=== PATIENT | male | born 1955 | race Caucasian/White ===

== ENCOUNTER 2018-02-03 18:30 | Emergency (ER) | payer BC ==
[2018-02-03] MEDS ORDERED: NA CHLORIDE 0.9% 500 ML ONE (18:47)
--- NOTE | 2018-02-03 19:08 | RAD REPORT ---
EXAM DESCRIPTION: RAD - Chest Single View - 02/03/2018 6:57 pm CLINICAL HISTORY: Cough, chest pain COMPARISON: None. FINDINGS: Portable technique limits examination quality. The lungs are grossly clear. The heart is normal in size. No displaced fractures. IMPRESSION: No acute intrathoracic process suspected.
--- NOTE | 2018-02-03 19:09 | RAD REPORT ---
EXAM DESCRIPTION: RAD - Shoulder Right 2 View - 02/03/2018 6:55 pm CLINICAL HISTORY: Fall, right shoulder pain COMPARISON: None. FINDINGS: No acute fracture or dislocation seen. AC joint degenerative changes.
[2018-02-03] MEDS ORDERED: MORPHINE 4 MG/ML SYR ONE (19:37)
[2018-02-03] MEDS ORDERED: ONDANSETRON 4 MG/2 ML VIAL ONE (19:37)
--- NOTE | 2018-02-03 19:37 | RAD REPORT ---
EXAM DESCRIPTION: CT - CTHCSPWOC - 02/03/2018 7:15 pm CLINICAL HISTORY: Trauma, head and neck injury. COMPARISON: None. TECHNIQUE: Axial 5 mm thick images of the head were obtained. Axial 2 mm thick images of the cervical spine were obtained with sagittal and coronal reconstruction images generated and reviewed. All CT scans are performed using dose optimization technique as appropriate and may include automated exposure control or mA/KV adjustment according to patient size. FINDINGS: CT HEAD WITHOUT CONTRAST: No acute hemorrhage, hydrocephalus or extra-axial collection is identified.No areas of brain edema or midline shift. The paranasal sinuses and mastoids are clear.The calvarium is intact. CT CERVICAL SPINE WITHOUT CONTRAST: Fracture of the right C7 lateral mass and transverse process noted.Displacement is minimal.No subluxa tion or additional fracture identified. IMPRESSION: No acute intracranial findings. Acute fracture of the right C7 lateral mass and transverse process noted with minimal displacement. N o subluxation. Findings were discussed with Dr. Gipson in the emergency room 7:30 p.m. 02/03/2018 by telephone.
[2018-02-03 19:49] LABS: Protime INR 0.89
[2018-02-03 19:52] LABS: Potassium 4.2 mEq/L (3.6-5.0)
[2018-02-03 19:56] LABS: Absolute Lymphocytes (CBC) 2.4 K/uL (0.7-4.9); Absolute Monocytes 0.9 K/uL (0.1-1.3); Absolute Neutrophil 9.7 K/uL (1.8-8.0); Basophils % 0.4 % (0-1.3); Eosinophils % 1.3 % (0-4.4); Hematocrit 50.8 % (39.6-49.0); MCH 32.5 pg (27.0-35.0); MCV 97.1 fL (80-100); MPV 8.6 fL (7.6-11.3); RBC Red Blood Cell Count 5.23 M/uL (4.33-5.43)
[2018-02-03 19:58] LABS: Albumin 4.3 g/dL (3.2-5.5); Bilirubin Direct 0.1 mg/dL (0-0.2); Bilirubin Total 0.4 mg/dL (0.3-1.2); Magnesium 2.3 mg/dL (1.8-2.5); Protein, Total 7.9 g/dL (6.0-8.3)
[2018-02-03] MEDS ORDERED: LABETALOL 20 MG/4ML SYRINGE IV ONE (19:59)
[2018-02-03 20:02] LABS: CKMB Creatine Kinase MB 2.3 ng/ml (0.3-4.0)
--- NOTE | 2018-02-03 20:19 | EDPHYS ---
Physician Documentation [facility] Name: Gaurav Ceballos Jr Age: 62 yrs Sex: Male : 1955 Arrival Date: 02/03/2018 Time: 18:33 Bed 6 Private MD: ED Physician Ted Balbuena HPI: 02/03 18:42 This 62 yrs old Male presents to ER via EMS with complaints of Fall Injury. cp 18:42 The patient has experienced syncope, lost consciousness. cp 18:42 Onset: The symptoms/episode began/occurred just prior to arrival. Duration: This was a cp single episode, that lasted 1 minute(s). Associated injury: Neck: pain, Back: thoracic area, pain, Right upper extremity: posterior aspect of right shoulder, decreased range of motion, pain, tenderness. Current symptoms: pain of right shoulder, upper back and neck area. Historical: - Allergies: 18:43 No Known Allergies; hb - Home Meds: 18:43 B/P Pill [Active]; COPD Inhaler [Active]; cholesterol pill [Active]; Flomax 0.4 mg Oral hb cp24 1 cap once daily [Active]; - PMHx: 18:43 COPD; High Cholesterol; Hypertension; Kidney stones; hb - PSHx: 18:43 Appendectomy; hb - Immunization history: Last tetanus immunization: < 10 years ago. - Social history:: Smoking status: Patient/guardian denies using tobacco. ROS: 18:45 Constitutional: Negative for body aches, chills, fever, poor PO intake. cp 18:45 Eyes: Negative for injury, pain, redness, and discharge. cp 18:45 ENT: Negative for drainage from ear(s), ear pain, sore throat, difficulty swallowing, difficulty handling secretions. 18:45 Cardiovascular: Negative for chest pain, edema, palpitations. 18:45 Respiratory: Positive for cough, "sounds productive", Negative for wheezing. 18:45 Abdomen/GI: Negative for abdominal pain, vomiting, diarrhea, constipation, black/tarry stool, rectal bleeding. 18:45 Back: Positive for pain at rest, pain with movement, of the right trapezius, right scapular area and thoracic area. 18:45 MS/extremity: Positive for decreased range of motion, pain, tenderness, of the left shoulder, Negative for deformity. 18:45 Skin: Positive for laceration(s), of the right forearm. 18:45 Neuro: Positive for syncope, Negative for altered mental status, numbness, weakness. 18:45 All other systems are negative. Exam: 18:52 Constitutional: The patient appears in no acute distress, alert, awake, cp non-diaphoretic, non-toxic, well developed, well nourished, uncomfortable. 18:52 Head/Face: Normocephalic, atraumatic. cp 18:52 Eyes: Periorbital structures: appear normal, Pupils: equal, round, and reactive to light and accomodation, Extraocular movements: intact throughout, Conjunctiva: normal, no exudate, no injection, Sclera: no appreciated abnormality, Lids and lashes: appear normal, bilaterally. 18:52 ENT: External ear(s): are unremarkable, Ear canal(s): are normal, clear, TM's: bulging, is not appreciated, bilaterally, dullness, bilaterally, erythema, is not appreciated, bilaterally, Nose: is normal, Mouth: Lips: moist, Oral mucosa: moist, Posterior pharynx: Airway: no evidence of obstruction, patent, Uvula: midline, swelling, is not appreciated, erythema, is not appreciated, exudate, is not appreciated, Voice: is normal. 18:52 Neck: C-spine: C-collar placed in ED, vertebral tenderness, that is mild, appreciated at C6 and C7, crepitus, is not appreciated, ROM/movement: pain, with any movement, nuchal rigidity, is not appreciated. 18:52 Chest/axilla: Inspection: normal, Palpation: is normal, no crepitus, no tenderness. 18:52 Cardiovascular: Rate: normal, Rhythm: regular, Pulses: Pulses are 2+ in right radial artery and left radial artery. Edema: is not appreciated, JVD: is not appreciated. 18:52 Respiratory: the patient does not display signs of respiratory distress, Respirations: normal, no use of accessory muscles, no retractions, no splinting, no tachypnea, labored breathing, is not present, Breath sounds: bronchial sounds, that are mild, are heard diffusely, decreased breath sounds, are not appreciated, stridor, is not appreciated, wheezing: is not appreciated. 18:52 Abdomen/GI: Inspection: abdomen appears normal, Bowel sounds: active, all quadrants, Palpation: abdomen is soft and non-tender, in all quadrants, rebound tenderness, is not appreciated, voluntary guarding, is not appreciated, involuntary guarding, is not appreciated. 18:52 Back: pain, that is moderate, of the right trapezius, right scapular area and right subscapular area, ROM is painful. 18:52 Musculoskeletal/extremity: Extremities: grossly normal except: noted in the left shoulder: decreased ROM, pain, tenderness, There is no evidence of deformity. 18:52 Skin: injury, abrasion(s), small abrasion noted, of the right forearm. 18:52 Neuro: Orientation: to person, place \\T\\ time. Mentation: is normal, Cerebellar function: Romberg testing is negative, normal finger to nose testing, Motor: moves all fours, strength is normal, Sensation: no obvious gross deficits. 19:33 ECG was reviewed by the Attending Physician. cp Vital Signs: 18:34 BP 177 / 111; Pulse 92; Resp 18; Temp 98; Pulse Ox 100% on R/A; Pain 10/10; hb 19:23 BP 187 / 110; Pulse 93; Resp 17; Pulse Ox 95% on R/A; tl2 20:29 BP 186 / 112; Pulse 91; Resp 21; Pulse Ox 96% on R/A; tl2 20:48 BP 171 / 106; Pulse 91; Resp 17; Pulse Ox 95% on R/A; tl2 21:24 BP 149 / 85; Pulse 87; Resp 17; Pulse Ox 98% on R/A; tl2 [place] Coma Score: 18:34 Eye Response: spontaneous(4). Verbal Response: oriented(5). Motor Response: obeys hb commands(6). Total: 15. 19:23 Eye Response: spontaneous(4). Verbal Response: oriented(5). Motor Response: obeys tl2 commands(6). Total: 15. Trauma Score (Adult): 18:34 Eye Response: spontaneous(1); Verbal Response: oriented(1); Motor Response: obeys hb commands(2); Systolic BP: > 89 mm Hg(4); Respiratory Rate: 10 to 29 per min(4); Kuldeep Score: 15; Trauma Score: 12 19:23 Eye Response: spontaneous(1); Verbal Response: oriented(1); Motor Response: obeys tl2 commands(2); Systolic BP: > 89 mm Hg(4); Respiratory Rate: 10 to 29 per min(4); Kuldeep Score: 15; Trauma Score: 12 MDM: 18:38 Patient medically screened. abbey 19:00 Differential Diagnosis: cardiac arrhythmia, GI bleed, idiopathic syncope, seizure, cp transient ischemic attack, vasovagal episode. 20:12 Data reviewed: vital signs, nurses notes, lab test result(s), radiologic studies, CT cp scan, plain films. 20:14 Physician consultation: was contacted at 20:10, regarding regarding transfer, to [facility]. patient's condition, DR Elias, neurosurgeon [facility], requests transfer to ED for further evaluation. 02/03 18:40 Order name: Basic Metabolic Panel 02/03 18:40 Order name: BNP; Complete Time: 20:46 cp 02/03 18:40 Order name: CBC with Diff; Complete Time: 20:00 02/03 20:00 Interpretation: Normal except: WBC 13.2; HCT 50.8. cp 02/03 18:40 Order name: Ckmb cp 02/03 18:40 Order name: CPK cp 02/03 18:40 Order name: LFT's; Complete Time: 20:11 cp 02/03 18:40 Order name: Magnesium; Complete Time: 20:11 cp 02/03 18:40 Order name: PT-INR; Complete Time: 19:56 cp 02/03 18:40 Order name: Ptt, Activated; Complete Time: 19:56 cp 02/03 18:40 Order name: Troponin (emerg Dept Use Only); Complete Time: 19:48 cp 02/03 18:40 Order name: D-Dimer; Complete Time: 19:56 cp 02/03 18:41 Order name: Basic Metabolic Panel; Complete Time: 20:11 EDMS 02/03 18:41 Order name: CKMB Creatine Kinase MB; Complete Time: 20:11 EDMS 02/03 18:41 Order name: Creatine Phosphokinase; Complete Time: 20:11 EDMS 02/03 18:40 Order name: XRAY Chest (1 view); Complete Time: 19:48 cp 02/03 18:40 Order name: EKG; Complete Time: 18:41 cp 02/03 18:40 Order name: Cardiac monitoring; Complete Time: 19:15 cp 02/03 18:40 Order name: EKG - Nurse/Tech; Complete Time: 19:20 cp 02/03 18:40 Order name: IV Saline Lock; Complete Time: 19:15 cp 02/03 18:40 Order name: Labs collected and sent; Complete Time: 19:16 cp 02/03 18:40 Order name: XRAY Shoulder RIGHT 2 view; Complete Time: 19:48 cp 02/03 18:40 Order name: CT Head C Spine; Complete Time: 19:48 cp 02/03 20:00 Order name: CT Chest For PE Angio; Complete Time: 20:46 cp 02/03 20:47 Interpretation: Report reviewed. cp 02/03 20:00 Order name: CT Abd/Pelvis - W/Contrast; Complete Time: 20:46 cp 02/03 20:47 Interpretation: Reviewed, no acute findings. cp 02/03 18:40 Order name: O2 Per Protocol; Complete Time: 19:15 cp 02/03 18:40 Order name: O2 Sat Monitoring; Complete Time: 19:15 cp 02/03 18:40 Order name: Urine Dipstick-Ancillary (obtain specimen); Complete Time: 20:12 cp EC:33 Rate is 89 beats/min. Rhythm is regular. [place] interval is normal. QRS interval is normal. cp QT interval is normal. No ST changes noted. Interpreted by me. Reviewed by me. Administered Medications: 18:59 Drug: NS 0.9% 500 ml Route: IV; Rate: bolus; Site: left hand; hb 21:28 Follow up: IV Status: Completed infusion; IV Intake: 500ml tl2 19:41 Drug: morphine 4 mg Route: IVP; Site: left hand; tl2 20:40 Follow up: Response: No adverse reaction; Pain is decreased tl2 19:41 Drug: Zofran 4 mg Route: IVP; Site: left hand; tl2 20:40 Follow up: Response: No adverse reaction tl2 20:12 Drug: Trandate 10 mg Route: IVP; Site: left hand; tl2 20:58 Follow up: Response: No adverse reaction; Blood pressure is unchanged tl2 20:58 Drug: Trandate 10 mg {Note: BP 171/106.} Route: IVP; Site: left hand; tl2 21:28 Follow up: Response: No adverse reaction; Blood pressure is lowered tl2 Disposition: 02/03/18 20:18 Transfer ordered to [facility]. Diagnosis are Syncope and collapse, Fracture of seventh cervical vertebra, Hypertensive heart disease. - Reason for transfer: Higher level of care. - Accepting physician is DR Alex. - Condition is Stable. - Problem is new. - Symptoms have improved. Addendum: 02/07/2018 10:12 Co-signature as Attending Physician, Ted Balbuena MD. g s Signatures: Dispatcher [employer] EDPR Salomon Gipson MD MD cha Page, Corey, Rabia Herndon cp, RN RN Isabel Muir RN RN tl2 Ted Balbuena MD MD Corrections: (The following items were deleted from the chart) 02/03 20:16 19:33 Chest Abdomen Pelvis W Con+CT.RAD.BRZ ordered. EDPR EDPR
--- NOTE | 2018-02-03 20:19 | ER ---
Nurse's Notes [facility] Name: Gaurav Ceballos Jr Age: 62 yrs Sex: Male : 1955 Arrival Date: 02/03/2018 Time: 18:33 Bed 6 Private MD: Diagnosis: Syncope and collapse;Fracture of seventh cervical vertebra;Hypertensive heart disease Presentation: 02/03 18:34 Presenting complaint: EMS states: Sudden coughing fit while sitting on side of bed, hb passed out when he stood up, landed in door frame face first in arched position. reports + LOC for approx 1 minute. BP 208/108, HR 984, BGL 86. Pt c/o severe right shoulder pain and neck pain. Care prior to arrival: IV initiated. 20 GA, in the left hand, Glucose check: 86. Mechanism of Injury: Fall from standing position. Trauma event details: Injury occurred in the [facility] [place], Injury occurred: at home. Injury occurred: February 03, 2018. 18:34 Acuity: EVERARDO 3 hb 18:34 Method Of Arrival: EMS: [facility] hb 18:45 Transition of care: patient was not received from another setting of care. Onset of hb symptoms was February 03, 2018. Initial Sepsis Screen: Does the patient meet any 2 criteria? No. Patient's initial sepsis screen is negative. Does the patient have a suspected source of infection? No. Patient's initial sepsis screen is negative. Trauma Activation: Alert Physician: ED Physician; Name: VIRGINIE Lin; Notified At: 18:36; Arrived At: 18:36 Physician: General Surgeon; Name: ; Notified At: 18:36; Arrived At: Physician: Radiology; Name: ; Notified At: 18:36; Arrived At: Physician: Respiratory; Name: ; Notified At: 18:36; Arrived At: Physician: Lab; Name: ; Notified At: 18:36; Arrived At: Historical: - Allergies: 18:43 No Known Allergies; hb - Home Meds: 18:43 B/P Pill [Active]; COPD Inhaler [Active]; cholesterol pill [Active]; Flomax 0.4 mg Oral hb cp24 1 cap once daily [Active]; - PMHx: 18:43 COPD; High Cholesterol; Hypertension; Kidney stones; hb - PSHx: 18:43 Appendectomy; hb - Immunization history: Last tetanus immunization: < 10 years ago. - Social history:: Smoking status: Patient/guardian denies using tobacco. Screenin:40 Abuse screen: Denies threats or abuse. Denies injuries from another. Tuberculosis hb screening: No symptoms or risk factors identified. 18:41 Nutritional screening: No deficits noted. Fall Risk None identified. hb Primary Survey: 18:38 A: Airway: patent. Breathing/Chest: Respiratory pattern: regular, Respiratory effort: hb spontaneous, unlabored, Breath sounds: clear, bilaterally. Chest inspection: symmetrical rise and fall of the chest. Circulation: Pulses: palpable . Skin color: pink, Skin temperature: warm, dry. Disability Alert. 19:30 Reassessment Airway Airway Patent Breathing/Chest Respiratory pattern Regular tl2 Respiratory effort Spontaneous Unlabored Breath sounds Clear Chest inspection Symmetrical Circulation Heart tones Present Disability Alert. Secondary Survey: 18:38 HEENT: Face Other superficial abrasion noted to forehead. Gastrointestinal: No deficits hb noted. : No signs and/or symptoms were reported regarding the genitourinary system. Musculoskeletal: Reports pain in neck, right shoulder. Assessment: 18:43 General: Appears in no apparent distress. uncomfortable, Behavior is calm, cooperative. hb Pain: Pain currently is 10 out of 10 on a pain scale. Neuro: Level of Consciousness is awake, alert, obeys commands, Oriented to person, place, time, situation. EENT: No signs and/or symptoms were reported regarding the EENT system. Cardiovascular: Capillary refill < 3 seconds Patient's skin is warm and dry. Respiratory: Airway is patent Trachea midline Respiratory effort is even, unlabored, Respiratory pattern is regular, symmetrical, Breath sounds are clear bilaterally. GI: No signs and/or symptoms were reported involving the gastrointestinal system. : No signs and/or symptoms were reported regarding the genitourinary system. Derm: abrasion to right forearm, bleeding controlled. Musculoskeletal: Reports neck pain, right shoulder pain. 19:05 Reassessment: pt to CT scan via wheelchair with senior controls technician. hb 19:27 General: Appears in no apparent distress. uncomfortable, Behavior is calm, cooperative, tl2 appropriate for age. Pain: Complains of pain in neck. Neuro: Level of Consciousness is awake, alert, obeys commands, Oriented to person, place, time, situation. Cardiovascular: Denies chest pain. Respiratory: Airway is patent Trachea midline Respiratory effort is even, unlabored, Respiratory pattern is regular, symmetrical, Breath sounds are clear bilaterally. GI: No signs and/or symptoms were reported involving the gastrointestinal system. : No signs and/or symptoms were reported regarding the genitourinary system. Derm: Skin is pink, warm \T\ dry. Musculoskeletal:. Injury Description: Abrasion sustained to right forearm is scabbed, was sustained 1-2 hours ago. 20:29 Reassessment: Patient appears in no apparent distress at this time. Patient and/or tl2 family updated on plan of care and expected duration. Pain level reassessed. Patient is alert, oriented x 3, equal unlabored respirations, skin warm/dry/pink. Report given to [facility]. 21:24 Reassessment: Patient appears in no apparent distress at this time. Patient and/or tl2 family updated on plan of care and expected duration. Pain level reassessed. Patient is alert, oriented x 3, equal unlabored respirations, skin warm/dry/pink. Pt verbalized understanding of need for transfer. Vital Signs: 18:34 BP 177 / 111; Pulse 92; Resp 18; Temp 98; Pulse Ox 100% on R/A; Pain 10/10; hb 19:23 BP 187 / 110; Pulse 93; Resp 17; Pulse Ox 95% on R/A; tl2 20:29 BP 186 / 112; Pulse 91; Resp 21; Pulse Ox 96% on R/A; tl2 20:48 BP 171 / 106; Pulse 91; Resp 17; Pulse Ox 95% on R/A; tl2 21:24 BP 149 / 85; Pulse 87; Resp 17; Pulse Ox 98% on R/A; tl2 Kul[place] Coma Score: 18:34 Eye Response: spontaneous(4). Verbal Response: oriented(5). Motor Response: obeys hb commands(6). Total: 15. 19:23 Eye Response: spontaneous(4). Verbal Response: oriented(5). Motor Response: obeys tl2 commands(6). Total: 15. Trauma Score (Adult): 18:34 Eye Response: spontaneous(1); Verbal Response: oriented(1); Motor Response: obeys hb commands(2); Systolic BP: > 89 mm Hg(4); Respiratory Rate: 10 to 29 per min(4); [place] Score: 15; Trauma Score: 12 19:23 Eye Response: spontaneous(1); Verbal Response: oriented(1); Motor Response: obeys tl2 commands(2); Systolic BP: > 89 mm Hg(4); Respiratory Rate: 10 to 29 per min(4); Kuldeep Score: 15; Trauma Score: 12 ED Course: 18:33 Patient arrived in ED. hb 18:37 Salomon Lin PA is PHCP. cp 18:37 Salomon Gipson MD is Attending Physician. cp 18:38 Triage completed. hb 18:40 Patient has correct armband on for positive identification. Bed in low position. Call hb light in reach. Side rails up X 1. 18:40 Patient maintains SpO2 saturation greater than 95% on room air. hb 18:41 Thermoregulation: warm blanket given to patient. hb 18:46 Arm band placed on left wrist. hb 18:55 X-ray completed. Portable x-ray completed in exam room. Patient tolerated procedure kc2 well. 18:56 XRAY Chest (1 view) In Process Unspecified. EDMS 18:56 XRAY Shoulder RIGHT 2 view In Process Unspecified. EDMS 19:[address] vm2 19:14 CT completed. Patient tolerated procedure well. Patient moved back from CT. vm2 19:15 CT Head C Spine In Process Unspecified. EDMS 19:25 Ted Balbuena MD is Attending Physician. cp 19:27 Maintain EMS IV. Dressing intact. Good blood return noted. Site clean \T\ dry. Gauge \T\ tl 2 site: 20 g L hand. 19:34 Radiology exam delayed due to lab results not completed at this time. (BUN/Creatinine). 19:34 Radiology exam delayed due to lab results not completed at this time. (BUN/Creatinine). vm2 19:58 Isabel Muir, BEN is Primary Nurse. tl2 19:59 Notified Nurse Practitioner and/or Physician Operations Research Director of a critical lab result(s), lp1 D-Dimer of 2,008. 20:24 CT Chest For PE Angio In Process Unspecified. EDMS 20:24 CT Abd/Pelvis - W/Contrast In Process Unspecified. EDMS 20:24 CT completed. Patient tolerated procedure well. Patient moved to CT. Patient moved back vm2 from CT. 20:40 Inserted saline lock: 22 gauge in left antecubital area, using aseptic technique. tl2 Patient transferred, IV remains in place. 21:24 No provider procedures requiring assistance completed. tl2 Administered Medications: 18:59 Drug: NS 0.9% 500 ml Route: IV; Rate: bolus; Site: left hand; hb 21:28 Follow up: IV Status: Completed infusion; IV Intake: 500ml tl2 19:41 Drug: morphine 4 mg Route: IVP; Site: left hand; tl2 20:40 Follow up: Response: No adverse reaction; Pain is decreased tl2 19:41 Drug: Zofran 4 mg Route: IVP; Site: left hand; tl2 20:40 Follow up: Response: No adverse reaction tl2 20:12 Drug: Trandate 10 mg Route: IVP; Site: left hand; tl2 20:58 Follow up: Response: No adverse reaction; Blood pressure is unchanged tl2 20:58 Drug: Trandate 10 mg {Note: BP 171/106.} Route: IVP; Site: left hand; tl2 21:28 Follow up: Response: No adverse reaction; Blood pressure is lowered tl2 Intake: 19:30 PO: 0ml; Total: 0ml. tl2 21:28 IV: 500ml; Total: 500ml. tl2 Outcome: 19:30 Patient's length of stay in the Emergency Department was greater than 2 hours. tl2 20:18 ER care complete, transfer ordered by MD. orourke 20:40 Transferred by ground EMS to [facility], Transfer form completed. tl2 20:40 Condition: stable 20:40 Discharge instructions given to patient, family, Instructed on the need for transfer. 21:29 Patient left the ED. tl2 Signatures: Dispatcher [employer] EDMS Eileen Dee Laura RN RN lp1 Salomon Lin PA PA cp Baxter, Heather, RN RN Rosa Clay 2 Isabel Muir RN RN tl2 Kendal Parisi vm2 Corrections: (The following items were deleted from the chart) 18:51 18:[address] vm2 vm2 19:27 19:23 Pulse 93bpm; Resp 17bpm; Pulse Ox 95% RA; tl2 tl2
--- NOTE | 2018-02-03 20:36 | RAD REPORT ---
EXAM DESCRIPTION: CT - Chest For Pe Angio - 02/03/2018 8:24 pm CLINICAL HISTORY: Chest pain. History of trauma, right shoulder pain COMPARISON: None. TECHNIQUE: CT angiogram of the pulmonary arteries was performed with MIP. All CT scans are performed using dose optimization technique as appropriate and may include automated exposure control or mA/KV adjustment according to patient size. FINDINGS: No evidence of pulmonary thromboembolism. No acute aortic finding demonstrated. The lungs are emphysematous but clear. No significant pericardial or pleural fluid. No fractures are identified. Small hiatal hernia. IMPRESSION: No evidence of pulmonary thromboembolism. No acute lung findings. Small hiatal hernia.
--- NOTE | 2018-02-03 20:38 | RAD REPORT ---
EXAM DESCRIPTION: CTAbdomen Pelvis W Contrast - 02/03/2018 8:24 pm CLINICAL HISTORY: Abdominal pain. Syncope, trauma. COMPARISON: None. TECHNIQUE: Biphasic CT imaging of the abdomen and pelvis was performed with 100 ml non-ionic IV cont rast. All CT scans are performed using dose optimization technique as appropriate and may include automated exposure control or mA/KV adjustment according to patient size. FINDINGS: The lung bases are clear.Small hiatal hernia noted. The liver, spleen, pancreas, adrenal glands and kidneys are within normal limits. No bowel obstruction, free air, free fluid or abscess. The appendix appears surgically absent. Moder ate fecal retention in the colon. No evidence of significant lymphadenopathy. No suspicious bony findings. IMPRESSION: No acute intra-abdominal or pelvic finding. Moderate fecal retention in the colon.
--- NOTE | 2018-02-04 07:02 | EKG ---
Test Date: 2018-02-03 Test Time: 19:27:23 Cellophaner: STERLING MEASUREMENT RESULTS: Intervals: Rate: 89 LA: 144 QRSD: 90 QT: 360 QTc: 438 Bishop: P: 57 LA: 144 QRS: 57 T: 67 INTERPRETIVE STATEMENTS: Normal sinus rhythm Normal ECG Compared to ECG 06/26/2017 21:47:42 No significant changes Electronically Signed On 02-04-18 07:01:43 CDT by Erick Montiel
== END 2018-02-03 21:29 | disposition short-term general hospital (02) ==
LOC: ER 18:30
DX: S12.600A Unspecified displaced fracture of seventh cervical vertebra, initial encounter for closed fracture (principal); W19.XXXA Unspecified fall, initial encounter; Y93.9 Activity, unspecified; Y92.9 Unspecified place or not applicable; I11.9 Hypertensive heart disease without heart failure; I10 Essential (primary) hypertension; E78.00 Pure hypercholesterolemia, unspecified; J44.9 Chronic obstructive pulmonary disease, unspecified
CPT/HCPCS: 36415; 70450; 71045; 71275; 72125; 74177; 80048; 80076; 82550; 82553; 83735; 83880; 84484; 85025; 85379; 85610; 85730; 93005; 96361; 96374; 96375; 99285; J2405; Q9967

== ENCOUNTER 2019-09-17 19:37 | Emergency (ER) | payer BC ==
--- NOTE | 2019-09-17 20:22 | RAD REPORT ---
EXAM DESCRIPTION: RAD - Foot Right 3 View - 09/17/2019 8:10 pm CLINICAL HISTORY: PAIN COMPARISON: No comparisons FINDINGS: No fracture or dislocation.
--- NOTE | 2019-09-17 20:43 | ER ---
Nurse's Notes [facility] Name: Gaurav Ceballos Jr Age: 64 yrs Sex: Male : 1955 Arrival Date: 09/17/2019 Time: 19:49 Bed 20 Private MD: Diagnosis: Contusion of right foot Presentation: 09/17 20:01 Presenting complaint: Patient states: he was breaking a dog fight and kicked the dog. wh Pt now C/O bruising on right foot. Transition of care: patient was not received from another setting of care. Onset of symptoms was September 16, 2019. Risk Assessment: Do you want to hurt yourself or someone else? Patient reports no desire to harm self or others. Initial Sepsis Screen: Does the patient meet any 2 criteria? HR > 90 bpm. No. Patient's initial sepsis screen is negative. Does the patient have a suspected source of infection? No. Patient's initial sepsis screen is negative. Care prior to arrival: None. 20:01 Method Of Arrival: Ambulatory 20:01 Acuity: EVERARDO 4 Historical: - Allergies: 20:03 No Known Allergies; - PMHx: 20:03 COPD; High Cholesterol; Hypertension; Kidney stones; ADD/ADHD; - PSHx: 20:03 Appendectomy; - Immunization history:: Adult Immunizations not up to date. - Social history:: Smoking status: Patient uses tobacco products, smokes one-half pack cigarettes per day. - Ebola Screening: : Patient negative for fever greater than or equal to 101.5 degrees Fahrenheit, and additional compatible Ebola Virus Disease symptoms Patient denies exposure to infectious person. Screenin:05 Abuse screen: Denies threats or abuse. Denies injuries from another. Nutritional screening: No deficits noted. Tuberculosis screening: No symptoms or risk factors identified. Fall Risk None identified. Assessment: 20:03 General: Appears in no apparent distress. Behavior is calm, cooperative, appropriate wh for age. Pain: Denies pain. Neuro: Level of Consciousness is awake, alert, obeys commands, Oriented to person, place, time, situation, Appropriate for age. Cardiovascular: Capillary refill < 3 seconds. Respiratory: Airway is patent Respiratory effort is even, unlabored, Respiratory pattern is regular, symmetrical. GI: Abdomen is flat, non-distended. : No signs and/or symptoms were reported regarding the genitourinary system. EENT: No signs and/or symptoms were reported regarding the EENT system. Derm: Bruising that is on right first toe. Musculoskeletal: Circulation, motion, and sensation intact. Vital Signs: 20:03 BP 160 / 110; Pulse 98; Resp 18; Temp 98.2; Pulse Ox 98% ; Weight 79.38 kg; Height 5 wh ft. 9 in. (175.26 cm); 20:48 BP 151 / 97; Pulse 84; Resp 18; Pulse Ox 97% on R/A; wh 20:03 Body Mass Index 25.84 (79.38 kg, 175.26 cm) ED Course: 19:49 Patient arrived in ED. ds1 19:50 Yocasta Curtis is Primary Nurse. 19:51 Sunil Monterroso NP is PHCP. pm1 19:51 Brian Roberson MD is Attending Physician. pm1 20:02 Triage completed. 20:05 Patient has correct armband on for positive identification. Bed in low position. Call light in reach. Side rails up X 1. Pulse ox on. NIBP on. 20:05 Arm band placed on right wrist. 20:10 Foot Right 3 View XRAY In Process Unspecified. EDMS 20:47 No provider procedures requiring assistance completed. Patient did not have IV access during this emergency room visit. Administered Medications: No medications were administered Outcome: 20:43 Discharge ordered by . pm1 20:48 Discharged to home ambulatory, with family. 20:48 Condition: stable 20:48 Discharge instructions given to patient, family, Instructed on discharge instructions, follow up and referral plans. POC Foot contusion Demonstrated understanding of instructions, follow-up care, POC 20:48 Patient left the ED. Signatures: Dispatcher [employer] EDMN Kaela Ramirez ds1 Sunil Monterroso NP EXHIBITIONS AND COLLECTIONS MANAGER pm1 Yocasta Curtis
--- NOTE | 2019-09-17 20:43 | EDPHYS ---
Physician Documentation [facility] Name: Gaurav Ceballos Jr Age: 64 yrs Sex: Male : 1955 Arrival Date: 09/17/2019 Time: 19:49 Bed 20 Private MD: ED Physician Brian Roberson HPI: 09/17 19:57 This 64 yrs old Male presents to ER via Ambulatory with complaints of Toe pm1 Injury. 19:57 The patient presents with pain, that is acute, bruising to right foot around great toe. pm1 Context: The problem was sustained outdoors, resulted from the patient kicking, dog that was fighting, Mechanism of Injury: Unknown the patient can fully bear weight, the patient is able to ambulate, without difficulty. Onset: The symptoms/episode began/occurred yesterday. Modifying factors: The symptoms are alleviated by nothing, the symptoms are aggravated by weight bearing. Associated signs and symptoms: Pertinent negatives: calf tenderness, fever. The patient has not experienced similar symptoms in the past. Patient was trying to save his puppy from a fight from another dog. Injured his right foot kicking the other dog. 19:57 Was wearing shoes. Was not bitten or scratched by dogs. pm1 Historical: - Allergies: 20:03 No Known Allergies; wh - PMHx: 20:03 COPD; High Cholesterol; Hypertension; Kidney stones; ADD/ADHD; wh - PSHx: 20:03 Appendectomy; - Immunization history:: Adult Immunizations not up to date. - Social history:: Smoking status: Patient uses tobacco products, smokes one-half pack cigarettes per day. - Ebola Screening: : Patient negative for fever greater than or equal to 101.5 degrees Fahrenheit, and additional compatible Ebola Virus Disease symptoms Patient denies exposure to infectious person. ROS: 20:05 MS/extremity: Positive for ecchymosis, pain, of the medial aspect of right foot. pm1 20:05 Constitutional: Negative for fever, chills, and weight loss, Neck: Negative for injury, pain, and swelling, Cardiovascular: Negative for chest pain, palpitations, and edema, Respiratory: Negative for shortness of breath, cough, wheezing, and pleuritic chest pain, Abdomen/GI: Negative for abdominal pain, nausea, vomiting, diarrhea, and constipation, Back: Negative for injury and pain. 20:05 Skin: Positive for ecchymosis, Negative for laceration(s), puncture. Exam: 20:05 Constitutional: This is a well developed, well nourished patient who is awake, alert, pm1 and in no acute distress. Head/Face: Normocephalic, atraumatic. Chest/axilla: Normal chest wall appearance and motion. Nontender with no deformity. No lesions are appreciated. Cardiovascular: Regular rate and rhythm with a normal S1 and S2. No gallops, murmurs, or rubs. Normal PMI, no JVD. No pulse deficits. Respiratory: Lungs have equal breath sounds bilaterally, clear to auscultation and percussion. No rales, rhonchi or wheezes noted. No increased work of breathing, no retractions or nasal flaring. Back: No spinal tenderness. No costovertebral tenderness. Full range of motion. 20:05 Musculoskeletal/extremity: Extremities: grossly normal except: noted in the right first toe: mild tenderness, There is no evidence of laceration, puncture. 20:05 Skin: Appearance: normal except for affected area, ecchymosis, that are mild, of the right first toe and distal medial aspect of right foot. 20:05 Neuro: Orientation: is normal, Motor: is normal, moves all fours, Gait: is steady, at a normal pace, without difficulty. Vital Signs: 20:03 BP 160 / 110; Pulse 98; Resp 18; Temp 98.2; Pulse Ox 98% ; Weight 79.38 kg; Height 5 wh ft. 9 in. (175.26 cm); 20:48 BP 151 / 97; Pulse 84; Resp 18; Pulse Ox 97% on R/A; wh 20:03 Body Mass Index 25.84 (79.38 kg, 175.26 cm) MDM: 19:51 Patient medically screened. pm1 19:57 ED course: Refused pain medications. Patient just wants imaging for his foot. pm1 20:37 Data reviewed: vital signs. Data interpreted: Pulse oximetry: on room air is 98 %. pm1 Interpretation: normal. 20:42 Counseling: I had a detailed discussion with the patient and/or guardian regarding: the pm1 historical points, exam findings, and any diagnostic results supporting the discharge/admit diagnosis, radiology results, the need for outpatient follow up, to return to the emergency department if symptoms worsen or persist or if there are any questions or concerns that arise at home. 09/17 19:57 Order name: Foot Right 3 View XRAY; Complete Time: 20:37 pm1 Administered Medications: No medications were administered Disposition: 09/18 10:21 Co-signature as Attending Physician, Brian Roberson MD I agree with the assessment and kdr plan of care. Disposition: 09/17/19 20:43 Discharged to Home. Impression: Contusion of right foot. - Condition is Stable. - Discharge Instructions: Foot Contusion. - Medication Reconciliation Form, Thank You Letter, Antibiotic Education, Prescription Opioid Use form. - Follow up: Emergency Department; When: As needed; Reason: Worsening of condition. Follow up: Private Physician; When: As needed; Reason: Recheck today's complaints, Continuance of care, Re-evaluation by your physician. - Problem is new. - Symptoms have improved. Signatures: Dispatcher [employer] EDMA Brian Roberson MD MD [facility] Sunil Monterroso NP HAND STRIPER pm1 Yocasta Curtis Corrections: (The following items were deleted from the chart) 09/17 20:48 20:43 09/17/2019 20:43 Discharged to Home. Impression: Contusion of right foot. wh Condition is Stable. Forms are Medication Reconciliation Form, Thank You Letter, Antibiotic Education, Prescription Opioid Use. Follow up: Emergency Department; When: As needed; Reason: Worsening of condition. Follow up: Private Physician; When: As needed; Reason: Recheck today's complaints, Continuance of care, Re-evaluation by your physician. Problem is new. Symptoms have improved. pm1
== END 2019-09-17 20:48 | disposition home or self-care (01) ==
LOC: ER 19:37
DX: S90.31XA Contusion of right foot, initial encounter (principal); W22.8XXA Striking against or struck by other objects, initial encounter; Y93.89 Activity, other specified; Y92.9 Unspecified place or not applicable; F17.210 Nicotine dependence, cigarettes, uncomplicated
CPT/HCPCS: 99283

== ENCOUNTER 2020-02-18 21:00 | Emergency (ER) | payer BC ==
[2020-02-18 21:44] LABS: Absolute Lymphocytes (CBC) 3.5 K/uL (0.7-4.9); Basophils % 0.6 % (0-1.3); Hematocrit 45.7 % (39.6-49.0); Lymphocytes % 31.6 % (15.3-44.8); MPV 8.6 fL (7.6-11.3)
[2020-02-18 21:50] LABS: Protime INR 1.02
--- NOTE | 2020-02-18 21:54 | RAD REPORT ---
EXAM DESCRIPTION: Bienvenido Single View02/18/2020 9:48 pm CLINICAL HISTORY: sob COMPARISON: 2018 FINDINGS: The lungs appear clear of acute infiltrate. The heart is normal size IMPRESSION: No acute abnormalities displayed
[2020-02-18 22:09] LABS: ALT/SGPT 29 U/L (12-78); AST/SGOT 18 U/L (15-37); Albumin 3.7 g/dL (3.4-5.0); Alkaline Phosphatase 115 U/L (45-117); BUN Blood Urea Nitrogen 21 mg/dL (7-18); Bicarbonate 24 mmol/L (21-32); Bilirubin Direct < 0.1 mg/dL (0-0.2); Bilirubin Total 0.3 mg/dL (0.2-1.0); Glucose Level 112 mg/dL (74-106); Magnesium 2.1 mg/dL (1.8-2.4); NT PRO-BNP 98 pg/mL (<125); Potassium 3.3 mmol/L (3.5-5.1); Protein, Total 7.4 g/dL (6.4-8.2); Sodium Level 143 mmol/L (136-145); Troponin (Emerg Dept Use Only) < 0.02 ng/mL (0.0-0.045)
--- NOTE | 2020-02-18 22:14 | ER ---
Nurse's Notes [facility] Name: Gaurav Ceballos Jr Age: 64 yrs Sex: Male : 1955 Arrival Date: 02/18/2020 Time: 21:03 Bed 16 Private MD: Diagnosis: Weakness Presentation: 02/17 21:12 Chief complaint: Patient states: Since Wednesday, I've been feeling weak, tired and ca1 fatigued. At work, I get really winded like an asthma attack when I lift heavy. I am also sore all over. Coronavirus screen: Proceed with normal triage. Patient denies a cough. Patient reports shortness of breath or difficulty breathing. Patient denies measured and/or subjective temperature greater than 100.4F prior to today's visit. Patient denies travel on a cruise ship or to a country [facility] currently lists as an affected area. Patient denies contact with known and/or suspected case of COVID-19. Ebola Screen: Patient negative for fever greater than or equal to 101.5 degrees Fahrenheit, and additional compatible Ebola Virus Disease symptoms Patient denies exposure to infectious person. Patient denies travel to an Ebola-affected area in the 21 days before illness onset. No symptoms or risks identified at this time. Initial Sepsis Screen: Does the patient meet any 2 criteria? No. Patient's initial sepsis screen is negative. Does the patient have a suspected source of infection? No. Patient's initial sepsis screen is negative. Risk Assessment: Do you want to hurt yourself or someone else? Patient reports no desire to harm self or others. Onset of symptoms was February 18, 2020. 21:12 Method Of Arrival: Ambulatory ca1 21:12 Acuity: EVERARDO 3 ca1 Historical: - Allergies: 21:15 No Known Allergies; ca1 - Home Meds: 21:25 amlodipine oral [Active]; inhaler annot recall the name [Active]; rr5 - PMHx: 21:15 ADD/ADHD; COPD; High Cholesterol; Hypertension; Kidney stones; ca1 - PSHx: 21:15 Appendectomy; ca1 - Immunization history:: Adult Immunizations not up to date. - Social history:: Smoking status: Patient reports the use of cigarette tobacco products, smokes one pack cigarettes per day. Screenin:23 Abuse screen: Denies threats or abuse. Denies injuries from another. Nutritional rr5 screening: No deficits noted. Tuberculosis screening: No symptoms or risk factors identified. Fall Risk IV access (20 points). Total Eng Fall Scale indicates. Assessment: 21:10 General: Appears in no apparent distress. comfortable, Behavior is calm, cooperative, rr5 appropriate for age. 21:10 Pain: Denies pain. Neuro: Level of Consciousness is awake, alert, obeys commands, rr5 Oriented to person, place, time, situation, Appropriate for age Reports weakness in body. Cardiovascular: Capillary refill < 3 seconds Patient's skin is warm and dry. Respiratory: Airway is patent Respiratory effort is even, unlabored, Respiratory pattern is regular, symmetrical. GI: No signs and/or symptoms were reported involving the gastrointestinal system. : No signs and/or symptoms were reported regarding the genitourinary system. EENT: No signs and/or symptoms were reported regarding the EENT system. Derm: Skin is intact, is healthy with good turgor, Skin temperature is warm. Musculoskeletal: Circulation, motion, and sensation intact. Capillary refill < 3 seconds, Reports weakness in general. 22:27 Reassessment: Patient appears in no apparent distress at this time. Patient is alert, rr5 oriented x 3, equal unlabored respirations, skin warm/dry/pink. discharge instruction given and explained without complaints made. Vital Signs: 21:12 BP 166 / 91; Pulse 93; Resp 18 S; Temp 97.8(O); Pulse Ox 98% on R/A; Weight 72.57 kg ca1 (R); Height 5 ft. 9 in. (175.26 cm) (R); 21:46 BP 156 / 94; Pulse 83; Resp 19; Pulse Ox 96% ; Pain 0/10; rr5 22:28 BP 151 / 85; Pulse 80; Resp 17; Pulse Ox 99% on R/A; rr5 21:12 Body Mass Index 23.63 (72.57 kg, 175.26 cm) ca1 ED Course: 21:03 Patient arrived in ED. fj1 21:06 Marcela Sebastian FNP-C is [facility]. kb 21:06 Ever Xie MD is Attending Physician. kb 21:08 Bowen Husain RN is Primary Nurse. rr5 21:15 Triage completed. ca1 21:15 Arm band placed on right wrist. ca1 21:23 Patient has correct armband on for positive identification. Bed in low position. Call rr5 light in reach. telemetry monitor on. Pulse ox on. NIBP on. 21:37 Initial lab(s) drawn, by me, sent to lab. Inserted saline lock: 20 gauge in left lt1 antecubital area, using aseptic technique. 21:46 EKG done, by ED staff, reviewed by Marcela SARAVIA. rr5 21:49 XRAY Chest (1 view) In Process Unspecified. EDMS 22:27 No provider procedures requiring assistance completed. IV discontinued, intact, rr5 bleeding controlled, No redness/swelling at site. Pressure dressing applied. Administered Medications: 22:20 Drug: Potassium Chloride 20 mEq Route: PO; rr5 22:31 Follow up: Response: No adverse reaction; Medication administered at discharge. rr5 Outcome: 22:13 Discharge ordered by . kb 22:28 Discharged to home ambulatory. rr5 22:28 Condition: stable 22:28 Discharge instructions given to patient, Instructed on discharge instructions, follow up and referral plans. Demonstrated understanding of instructions, follow-up care. 22:32 Patient left the ED. rr5 Signatures: Dispatcher [employer] EDWV Marcela Sebastian FNP-C FNP-Ckb Roque, Raymond, RN RN rr5 Sejal Nelson RN RN ca1 Sierra Ying lt1 Clifton Brock fj1
--- NOTE | 2020-02-18 22:14 | EDPHYS ---
Physician Documentation [facility] Name: Gaurav Ceballos Jr Age: 64 yrs Sex: Male : 1955 Arrival Date: 02/18/2020 Time: 21:03 Bed 16 Private MD: ED Physician Ever Xie HPI: 02/17 21:52 This 64 yrs old Male presents to ER via Ambulatory with complaints of General kb Weakness. 21:52 The patient presents with generalized weakness. Onset: The symptoms/episode kb began/occurred 1.5 week(s) ago. Context: occurred at work, occurred while the patient was working. Modifying factors: The symptoms are alleviated by nothing, the symptoms are aggravated by nothing. Associated signs and symptoms: Pertinent positives: shortness of breath. Severity of symptoms: At their worst the symptoms were mild moderate in the emergency department the symptoms have improved. Patient's baseline: Neuro: alert and fully oriented, Motor: no deficits, Ambulation: walks without assistance, Speech: normal. The patient has experienced similar episodes in the past, a few times. The patient has not recently seen a physician. Pt reports weakness and shortness of breath upon heavy exertion at work for a week and a half. Reports this has happened intermittently over the last 2 years, but more constant when he started this new job 1.5 weeks ago. Historical: - Allergies: 21:15 No Known Allergies; ca1 - Home Meds: 21:25 amlodipine oral [Active]; inhaler annot recall the name [Active]; rr5 - PMHx: 21:15 ADD/ADHD; COPD; High Cholesterol; Hypertension; Kidney stones; ca1 - PSHx: 21:15 Appendectomy; ca1 - Immunization history:: Adult Immunizations not up to date. - Social history:: Smoking status: Patient reports the use of cigarette tobacco products, smokes one pack cigarettes per day. ROS: 21:51 Constitutional: Negative for fever, chills, and weight loss, Neck: Negative for injury, kb pain, and swelling, Cardiovascular: Negative for chest pain, palpitations, and edema, Abdomen/GI: Negative for abdominal pain, nausea, vomiting, diarrhea, and constipation, Back: Negative for injury and pain, MS/Extremity: Negative for injury and deformity, Skin: Negative for injury, rash, and discoloration. 21:51 Respiratory: Positive for dyspnea on exertion, Negative for cough, hemoptysis, orthopnea, pleurisy, shortness of breath, sputum production, wheezing. 21:51 Neuro: Positive for weakness. Exam: 21:48 Constitutional: This is a well developed, well nourished patient who is awake, alert, kb and in no acute distress. Head/Face: Normocephalic, atraumatic. Neck: Trachea midline, no thyromegaly or masses palpated, and no cervical lymphadenopathy. Supple, full range of motion without nuchal rigidity, or vertebral point tenderness. No Meningismus. Chest/axilla: Normal chest wall appearance and motion. Nontender with no deformity. No lesions are appreciated. Cardiovascular: Regular rate and rhythm with a normal S1 and S2. No gallops, murmurs, or rubs. Normal PMI, no JVD. No pulse deficits. Respiratory: Lungs have equal breath sounds bilaterally, clear to auscultation and percussion. No rales, rhonchi or wheezes noted. No increased work of breathing, no retractions or nasal flaring. Abdomen/GI: Soft, non-tender, with normal bowel sounds. No distension or tympany. No guarding or rebound. No evidence of tenderness throughout. Skin: Warm, dry with normal turgor. Normal color with no rashes, no lesions, and no evidence of cellulitis. MS/ Extremity: Pulses equal, no cyanosis. Neurovascular intact. Full, normal range of motion. Neuro: Awake and alert, GCS 15, oriented to person, place, time, and situation. Cranial nerves II-XII grossly intact. Motor strength 5/5 in all extremities. Sensory grossly intact. Cerebellar exam normal. Normal gait. 21:48 ECG was reviewed by the Attending Physician. Vital Signs: 21:12 BP 166 / 91; Pulse 93; Resp 18 S; Temp 97.8(O); Pulse Ox 98% on R/A; Weight 72.57 kg ca1 (R); Height 5 ft. 9 in. (175.26 cm) (R); 21:46 BP 156 / 94; Pulse 83; Resp 19; Pulse Ox 96% ; Pain 0/10; rr5 22:28 BP 151 / 85; Pulse 80; Resp 17; Pulse Ox 99% on R/A; rr5 21:12 Body Mass Index 23.63 (72.57 kg, 175.26 cm) ca1 MDM: 21:06 Patient medically screened. kb 21:51 Data reviewed: vital signs, nurses notes. Data interpreted: Pulse oximetry: on room air kb is 96 %. Interpretation: normal. 22:13 Counseling: I had a detailed discussion with the patient and/or guardian regarding: the kb historical points, exam findings, and any diagnostic results supporting the discharge/admit diagnosis, lab results, radiology results, the need for outpatient follow up, a family practitioner, to return to the emergency department if symptoms worsen or persist or if there are any questions or concerns that arise at home. 02/17 21:25 Order name: Basic Metabolic Panel; Complete Time: 22:10 kb 02/17 21:25 Order name: CBC with Diff; Complete Time: 21:46 kb 02/17 21:25 Order name: LFT's; Complete Time: 22:10 kb 02/17 21:25 Order name: Magnesium; Complete Time: 22:10 kb 02/17 21:25 Order name: NT PRO-BNP; Complete Time: 22:10 kb 02/17 21:25 Order name: PT-INR; Complete Time: 21:54 kb 02/17 21:25 Order name: Troponin (emerg Dept Use Only); Complete Time: 22:11 kb 02/17 21:25 Order name: XRAY Chest (1 view); Complete Time: 22:03 kb 03 21:25 Order name: EKG; Complete Time: 21:25 kb 02/17 21:25 Order name: Cardiac monitoring; Complete Time: 21:46 kb 02/17 21:25 Order name: EKG - Nurse/Tech; Complete Time: 21:46 kb 02/17 21:25 Order name: IV Saline Lock; Complete Time: 21:37 kb 02/17 21:25 Order name: Labs collected and sent; Complete Time: 21:37 kb 02/17 21:25 Order name: O2 Per Protocol; Complete Time: 21:46 kb 02/17 21:25 Order name: O2 Sat Monitoring; Complete Time: 21:46 kb EC:48 Rate is 76 beats/min. Rhythm is regular. QRS [place] is Normal. ND interval is normal at kb 148 msec. QRS interval is normal at 98 msec. QT interval is normal at 364 msec. Administered Medications: 22:20 Drug: Potassium Chloride 20 mEq Route: PO; rr5 22:31 Follow up: Response: No adverse reaction; Medication administered at discharge. rr5 Disposition: 02/18 06:45 Co-signature as Attending Physician, Ever Xie MD I agree with the assessment and tw4 plan of care. Disposition: 02/18/20 22:13 Discharged to Home. Impression: Weakness. - Condition is Stable. - Discharge Instructions: Weakness, [id number]. - Medication Reconciliation Form, Thank You Letter, Antibiotic Education, Prescription Opioid Use form. - Follow up: Emergency Department; When: As needed; Reason: Worsening of condition. Follow up: Private Physician; When: 2 - 3 days; Reason: Recheck today's complaints, Continuance of care, Re-evaluation by your physician. Signatures: Dispatcher [employer] EDMS Marcela Sebastian, PREVENTION RN-C PREVENTION RN-Ever Fabian MD MD tw4 Bowen Husain RN RN rr5 Sejal Nelson RN RN ca1 Corrections: (The following items were deleted from the chart) 02/17 22:32 22:13 02/18/2020 22:13 Discharged to Home. Impression: Weakness. Condition is Stable. rr5 Forms are Medication Reconciliation Form, Thank You Letter, Antibiotic Education, Prescription Opioid Use. Follow up: Emergency Department; When: As needed; Reason: Worsening of condition. Follow up: Private Physician; When: 2 - 3 days; Reason: Recheck today's complaints, Continuance of care, Re-evaluation by your physician. kb
[2020-02-18] MEDS ORDERED: POTASSIUM CL SA 10 MEQ TAB PO ONE (22:25)
[2020-02-18 22:51] VITALS: TEMP 97.8
[2020-02-18 22:53] VITALS: BP 151/85; O2SAT 99
--- NOTE | 2020-02-19 10:50 | EKG ---
Test Date: 2020-02-18 Test Time: 21:42:44 Audit Partner: RR MEASUREMENT RESULTS: Intervals: Rate: 76 CA: 148 QRSD: 98 QT: 364 QTc: 409 [place]: P: 44 CA: 148 QRS: 78 T: 64 INTERPRETIVE STATEMENTS: Normal sinus rhythm Incomplete right bundle branch block Borderline ECG Compared to ECG 02/03/2018 19:27:23 Incomplete right bundle-branch block now present Electronically Signed On 02-19-20 10:49:03 CDT by Flip Ferrer
== END 2020-02-18 22:32 | disposition home or self-care (01) ==
LOC: ER 21:00
DX: R53.1 Weakness (principal); F17.210 Nicotine dependence, cigarettes, uncomplicated; I10 Essential (primary) hypertension; J44.9 Chronic obstructive pulmonary disease, unspecified
CPT/HCPCS: 36415; 71045; 80048; 80076; 83735; 83880; 84484; 85025; 85610; 93005; 99284

== ENCOUNTER 2020-04-07 14:45 | Emergency (ER) | payer BC ==
[2020-04-07 15:50] LABS: Absolute Lymphocytes (CBC) 2.6 K/uL (0.7-4.9); Basophils % 0.6 % (0-1.3); Hematocrit 48.5 % (39.6-49.0); Lymphocytes % 25.9 % (15.3-44.8); MPV 8.5 fL (7.6-11.3); RBC Red Blood Cell Count 4.96 M/uL (4.33-5.43)
[2020-04-07 16:05] LABS: ALT/SGPT 26 U/L (12-78); AST/SGOT 16 U/L (15-37); Alkaline Phosphatase 93 U/L (45-117); BUN Blood Urea Nitrogen 16 mg/dL (7-18); Bicarbonate 25 mmol/L (21-32); Bilirubin Direct < 0.1 mg/dL (0-0.2); Bilirubin Total 0.4 mg/dL (0.2-1.0); Glucose Level 98 mg/dL (74-106); Lipase 91 U/L (73-393); Potassium 4.1 mmol/L (3.5-5.1); Protein, Total 7.7 g/dL (6.4-8.2); Sodium Level 140 mmol/L (136-145); Troponin (Emerg Dept Use Only) < 0.02 ng/mL (0.0-0.045)
--- NOTE | 2020-04-07 17:08 | RAD REPORT ---
EXAM DESCRIPTION: CT - Abdomen Pelvis W Contrast - 04/07/2020 4:23 pm CLINICAL HISTORY: Abdominal pain COMPARISON: 2017 TECHNIQUE: Computed axial tomography of the abdomen pelvis was obtained. 100 cc Isovue-300 was admin istered intravenously. Oral contrast was not requested which limits evaluation of bowel. All CT scans are performed using dose optimization technique as appropriate and may include automated exposure control or mA/KV adjustment according to patient size. FINDINGS: The liver, spleen, pancreas, adrenal and kidneys appear unremarkable. There is no evidence of diverticulitis. Small left inguinal hernia contains fat IMPRESSION: No acute abnormality is displayed.
--- NOTE | 2020-04-07 17:10 | RAD REPORT ---
EXAM DESCRIPTION: Bienvenido Single View04/07/2020 3:47 pm CLINICAL HISTORY: Abdominal pain COMPARISON: February 2020 FINDINGS: The lungs appear clear of acute infiltrate. The heart is normal size IMPRESSION: No acute abnormalities displayed
--- NOTE | 2020-04-07 17:13 | ER ---
Nurse's Notes [facility] Name: Gaurav Ceballos Jr Age: 64 yrs Sex: Male : 1955 Arrival Date: 04/07/2020 Time: 14:50 Bed External Waiting Private MD: Diagnosis: Unspecified abdominal pain Presentation: 04/07 15:06 Chief complaint: Patient states: Eating at 2pm and felt a food bolus stuck in lower ll1 chest area. Had SOB then N/V. States he feels better now. History of esophageal stricture problems in the past. Coronavirus screen: Proceed with normal triage. Patient reports a cough. Patient denies shortness of breath or difficulty breathing. Patient denies measured and/or subjective temperature greater than 100.4F prior to today's visit. Patient denies travel on a cruise ship or to a country the [facility] currently lists as an affected area. Patient denies contact with known and/or suspected case of COVID-19. "COPD cough". Ebola Screen: Patient denies travel to an Ebola-affected area in the 21 days before illness onset. Initial Sepsis Screen: Does the patient meet any 2 criteria? HR > 90 bpm. No. Patient's initial sepsis screen is negative. Risk Assessment: Do you want to hurt yourself or someone else? Patient reports no desire to harm self or others. Onset of symptoms was April 07, 2020. 15:06 Method Of Arrival: Ambulatory ll1 15:06 Acuity: EVERARDO 3 ll1 Historical: - Allergies: 15:08 No Known Allergies; ll1 - PMHx: 15:08 High Cholesterol; Hypertension; Kidney stones; COPD; ADD/ADHD; ll1 - PSHx: 15:08 Appendectomy; ll1 - Immunization history:: Adult Immunizations up to date. - Social history:: Smoking status: Patient reports the use of cigarette tobacco products, smokes one-half pack cigarettes per day, Patient/guardian denies using alcohol, street drugs. Screenin:15 Abuse screen: Denies threats or abuse. Nutritional screening: No deficits noted. Tuberculosis screening: No symptoms or risk factors identified. Fall Risk None identified. Assessment: 15:10 General: Appears in no apparent distress. Behavior is calm, cooperative, appropriate ll1 for age. Pain: Denies pain. Neuro: No deficits noted. Cardiovascular: No deficits noted. Respiratory: No deficits noted. GI: Abdomen is flat, Bowel sounds present X 4 quads. Abd is soft and non tender X 4 quads. Reports food bolus stuck in lower esophagus at 2pm. Had SOB and N/V. Feels better since arrival. 16:10 Reassessment: Patient appears in no apparent distress at this time. No changes from ll1 previously documented assessment. Patient and/or family updated on plan of care and expected duration. Pain level reassessed. Patient is alert, oriented x 3, equal unlabored respirations, skin warm/dry/pink. 16:13 Reassessment: Pt to CT scan via WC. Vital Signs: 15:06 BP 118 / 83; Pulse 95; Resp 18; Temp 98.6; Pulse Ox 97% on R/A; Pain 0/10; ll1 15:45 BP 130 / 90; Pulse 79; Resp 18; ll1 16:30 BP 133 / 86; Pulse 80; Resp 18; Pulse Ox 100% ; ll1 ED Course: 14:35 Inserted saline lock: 20 gauge in left antecubital area, using aseptic technique. Blood ll1 collected. 14:50 Patient arrived in ED. bp1 15:03 Sunil Monterroso, JAELYN is PHCP. pm1 15:03 Edith Galindo MD is Attending Physician. pm1 15:08 Triage completed. ll1 15:08 Arm band placed on Patient placed in an exam room, on a stretcher. ll1 15:19 Caity Dorman, BEN is Primary Nurse. ll1 15:47 Chest Single View XRAY In Process Unspecified. EDMS 15:50 EKG done, by ED staff, reviewed by Sunil Monterroso NP. Patient maintains SpO2 jp3 saturation greater than 95% on room air. 15:51 Placed in gown. Bed in low position. Call light in reach. Warm blanket given. Verbal jp3 reassurance given. Pulse ox on. NIBP on. 16:19 CT completed. Patient tolerated procedure well. Patient moved back from CT. bq 16:26 CT Abd/Pelvis - IV Contrast Only In Process Unspecified. EDMS Administered Medications: No medications were administered Outcome: 17:12 Discharge ordered by . pm1 19:29 Patient left the ED. ss Signatures: Dispatcher [employer] EDMS Tiffany Ruano Smirch, Maral, RN RN ss Sunil Monterroso, DISPATCHER RADIOACTIVE WASTE DISPOSAL DISPATCHER RADIOACTIVE WASTE DISPOSAL pm1 Alonzo Beaver jp3 Corinne Montiel, RN RN ah Caity Dorman RN RN ll1 Nadia Maldonado bp1
--- NOTE | 2020-04-07 17:14 | EDPHYS ---
Physician Documentation [facility] Name: Gaurav Ceballos Jr Age: 64 yrs Sex: Male : 1955 Arrival Date: 04/07/2020 Time: 14:50 Bed External Waiting Private MD: MADALYN Physician Edith Galindo HPI: 04/07 15:27 This 64 yrs old Male presents to ER via Ambulatory with complaints of pm1 Epigastric Pain. 15:33 The patient presents with abdominal pain in the epigastric area. Onset: The pm1 symptoms/episode began/occurred at 14:00. The symptoms do not radiate. Associated signs and symptoms: Pertinent positives: shortness of breath, Self induced vomiting, Pertinent negatives: chest pain, dysuria, fever. The symptoms are described as sharp. Modifying factors: The symptoms are alleviated by self induced vomiting. the symptoms are aggravated by food. Severity of pain: in the emergency department the pain has resolved. The patient has experienced similar episodes in the past, but today's symptoms are worse, lasting longer and more painful. Debaghi about a month ago and told that his heart is healthy. Historical: - Allergies: 15:08 No Known Allergies; ll1 - PMHx: 15:08 High Cholesterol; Hypertension; Kidney stones; COPD; ADD/ADHD; ll1 - PSHx: 15:08 Appendectomy; ll1 - Immunization history:: Adult Immunizations up to date. - Social history:: Smoking status: Patient reports the use of cigarette tobacco products, smokes one-half pack cigarettes per day, Patient/guardian denies using alcohol, street drugs. ROS: 15:33 Constitutional: Negative for fever, chills, and weight loss, Neck: Negative for injury, pm1 pain, and swelling, Cardiovascular: Negative for chest pain, palpitations, and edema. 15:33 Back: Negative for injury and pain, : Negative for injury, bleeding, discharge, and swelling, MS/Extremity: Negative for injury and deformity, Skin: Negative for injury, rash, and discoloration, Neuro: Negative for headache, weakness, numbness, tingling, and seizure. 15:33 Respiratory: Positive for shortness of breath, Negative for cough, wheezing. 15:33 Abdomen/GI: Positive for abdominal pain, of the epigastric area, one episode of self induced vomiting, Negative for diarrhea, constipation. Exam: 15:33 Constitutional: This is a well developed, well nourished patient who is awake, alert, pm1 and in no acute distress. Head/Face: Normocephalic, atraumatic. Chest/axilla: Normal chest wall appearance and motion. Nontender with no deformity. No lesions are appreciated. 15:33 Back: No spinal tenderness. No costovertebral tenderness. Full range of motion. Skin: Warm, dry with normal turgor. Normal color with no rashes, no lesions, and no evidence of cellulitis. MS/ Extremity: Pulses equal, no cyanosis. Neurovascular intact. Full, normal range of motion. 15:33 Cardiovascular: Exam negative for acute changes, Rate: normal, Rhythm: regular, Pulses: no pulse deficits are appreciated, Edema: is not appreciated. 15:33 Respiratory: Exam negative for acute changes, respiratory distress, shortness of breath. 15:33 Abdomen/GI: Exam negative for acute changes, Inspection: abdomen appears normal, Palpation: abdomen is soft and non-tender, in all quadrants, mass, is not appreciated, rebound tenderness, is not appreciated. 15:33 Neuro: Exam negative for acute changes, Orientation: is normal, Mentation: is normal, Motor: is normal, moves all fours. Vital Signs: 15:06 BP 118 / 83; Pulse 95; Resp 18; Temp 98.6; Pulse Ox 97% on R/A; Pain 0/10; ll1 15:45 BP 130 / 90; Pulse 79; Resp 18; ll1 16:30 BP 133 / 86; Pulse 80; Resp 18; Pulse Ox 100% ; ll1 MDM: 15:04 Patient medically screened. pm1 16:56 Data reviewed: vital signs. Data interpreted: Pulse oximetry: on room air is 100 %. pm1 Interpretation: normal. 17:11 Counseling: I had a detailed discussion with the patient and/or guardian regarding: the pm1 historical points, exam findings, and any diagnostic results supporting the discharge/admit diagnosis, lab results, radiology results, the need for outpatient follow up, for definitive care, a sql server developer, to return to the emergency department if symptoms worsen or persist or if there are any questions or concerns that arise at home. 04/07 15:27 Order name: Basic Metabolic Panel; Complete Time: 16:18 pm1 04/07 15:27 Order name: CBC with Diff; Complete Time: 15:59 pm1 04/07 15:27 Order name: CT Abd/Pelvis - IV Contrast Only; Complete Time: 17:11 pm1 04/07 15:27 Order name: Hepatic Function; Complete Time: 16:18 pm1 04/07 15:27 Order name: Lipase; Complete Time: 16:18 pm1 04/07 15:27 Order name: Troponin (emerg Dept Use Only); Complete Time: 16:18 pm1 04/07 15:27 Order name: IV Saline Lock; Complete Time: 15:42 pm1 04/07 15:27 Order name: Labs collected and sent; Complete Time: 15:42 pm1 04/07 15:27 Order name: EKG; Complete Time: 15:28 pm04/07 15:27 Order name: EKG - Nurse/Tech; Complete Time: 15:42 pm1 04/07 15:27 Order name: Chest Single View XRAY; Complete Time: 17:13 pm1 Administered Medications: No medications were administered Disposition: 04/08 07:05 Co-signature as Attending Physician, Edith Galindo MD. ma2 Disposition: 04/07/20 17:12 Discharged to Home. Impression: Unspecified abdominal pain. - Condition is Stable. - Discharge Instructions: Abdominal Pain, Adult. - Medication Reconciliation Form, Thank You Letter, Antibiotic Education, Prescription Opioid Use form. - Follow up: Emergency Department; When: As needed; Reason: Recheck today's complaints, Continuance of care, Re-evaluation by your physician. Follow up: Private Physician; When: 2 - 3 days; Reason: Recheck today's complaints, Continuance of care, Re-evaluation by your physician. - Problem is new. - Symptoms have improved. Signatures: Dispatcher [employer] EDMS Maral Galvan RN RN ss Sunil Monterroso, JAELYN PUBLIC SERVICE DIRECTOR pm1 Edith Galindo MD MD ma2 Caity Dorman RN RN ll1 Corrections: (The following items were deleted from the chart) 04/07 19:29 17:12 04/07/2020 17:12 Discharged to Home. Impression: Unspecified abdominal pain. ss Condition is Stable. Forms are Medication Reconciliation Form, Thank You Letter, Antibiotic Education, Prescription Opioid Use. Follow up: Emergency Department; When: As needed; Reason: Recheck today's complaints, Continuance of care, Re-evaluation by your physician. Follow up: Private Physician; When: 2 - 3 days; Reason: Recheck today's complaints, Continuance of care, Re-evaluation by your physician. Problem is new. Symptoms have improved. pm1
[2020-04-07 19:50] VITALS: TEMP 98.6
[2020-04-07 19:53] VITALS: BP 133/86; O2SAT 100
== END 2020-04-07 19:29 | disposition home or self-care (01) ==
LOC: ER 14:45
DX: R10.13 Epigastric pain (principal); I10 Essential (primary) hypertension; F17.210 Nicotine dependence, cigarettes, uncomplicated
CPT/HCPCS: 93005; 85025; 80048; 36415; 80076; 84484; 83690; 74177; 71045; 99285; Q9967

== ENCOUNTER 2024-11-17 06:18 | Day surgery (SDC) | payer OTHER ==
[2024-11-15 13:36] LABS: PT Prothrombin Time 11.2 SECONDS (9.4-12.5); PTT, Activated Partial Thromb 32.9 SECONDS (24.3-36.9); Protime INR 1.07
[2024-11-17] MEDS: Ringers Lactate 1,000 ML IV ONE (06:45)
[2024-11-17] MEDS ORDERED: ONDANSETRON 4 MG/2 ML VIAL ONE (07:11)
[2024-11-17] MEDS ORDERED: FENTANYL CITR 100 MCG/2 ML ONE (07:11)
[2024-11-17] MEDS ORDERED: propofoL 200 MG/20 ML VIAL IV ONE (07:11)
[2024-11-17] MEDS ORDERED: LIDOCAINE 2% MPF 5 ML VIAL ONE (07:11)
[2024-11-17] MEDS ORDERED: HEPARIN 5000 UNIT/ML 1 ML VIAL ONE (07:26)
[2024-11-17] MEDS ORDERED: LIDOCAINE 1% 20 ML MDV ONE (07:27)
[2024-11-17] MEDS ORDERED: NS 0.9% VIAL 20 ML ONE (07:27)
[2024-11-17] MEDS ORDERED: EPHEDRINE SULF 50 MG/ML VIAL ONE (07:51)
[2024-11-17] MEDS: CEFAZOLIN SODIUM 2 GM/VIAL ONE (07:53)
[2024-11-17] MEDS ORDERED: dexAMETHasone 4 MG/ML VIAL ONE (07:55)
[2024-11-17] MEDS ORDERED: Mastisol Adhesive Liq ONE (08:26)
--- NOTE | 2024-11-17 08:40 | P.OP ---
Date of Service: 11/17/24 Preop diagnosis: Lung cancer Postop diagnosis: Same Procedure performed: Placement of vascular access [id number], interpretation of Doppler and fluoroscopy Surgeon: Herbert Stapleton MD Cleaning Crew Member: None Estimated blood loss: Minimal Specimen: None Findings: Normal anatomy Anesthesia: General Complications: None Drains: None Fluids and blood products: Nonapplicable Disposition: Recovery room Operative note: Patient brought to the OR and placed in supine position. General anesthesia began. Patient prepped and draped in usual sterile fashion. Lidocaine 1% infiltrated locally. Doppler device used to isolate the right IJ vein. 18-gauge needle used to access the right IJ vein. Guidewire passed and position confirmed with fluoroscopy. 3 cm counterincision made on the right anterior chest. Pocket created. Bleeding controlled with cautery. Tunneling device used to tunnel the catheter between the 2 wounds. Tip of the catheter placed in the SVC right atrial junction under fluoroscopy. Catheter cut to appropriate size and attached to the Port-A-Cath device. Port-A-Cath device attached to subcutaneous tissue with 3-0 Vicryl. Port flushed and packed with heparin. There was good blood flow. 3-0 chromic used to approximate subcutaneous tissue and close skin. Sterile dressing applied. Patient awakened and taken to recovery room in good general condition. Chest x-ray has been ordered. CC: Dr. Nagy's office
[2024-11-17] MEDS ORDERED: HYDROCODONE/APAP 7.5/325 MG TAB PO PRN (08:42)
--- NOTE | 2024-11-17 09:09 | RAD REPORT ---
Procedure: Chest Single View HISTORY: Central venous line placement FINDINGS: A central venous line has its tip in the SVC. No pneumothorax
[2024-11-17 09:56] VITALS: BP 15/85; TEMP 97; O2SAT 93
--- NOTE | 2024-11-17 10:33 | RAD REPORT ---
Exam: Fluoroscopy less than one hour CLINICAL HISTORY: Central venous catheter placement FINDINGS: A central venous catheter was advanced into the superior vena cava. The procedure was performed by Dr. Stapleton Fluoroscopy time 0.1 minutes. 5 fluoroscopic spot images obtained.
== END 2024-11-17 09:50 | disposition home or self-care (01) ==
LOC: OR 06:18
PROVIDERS: ATTEND Surgery
PROC: 0JH60WZ Insertion of Totally Implantable Vascular Access Device into Chest Subcutaneous Tissue and Fascia, Open Approach (ICD-10-PCS; principal; 2024-11-17 07:30)
DX: C34.12 Malignant neoplasm of upper lobe, left bronchus or lung (principal)
CPT/HCPCS: 36415; 85610; 85730; 71045; 36561; J1644 ×2; A4216; J2704; J1100; J2003; J3010; J2405; J7120; C1788; 76000